=== PATIENT | male | born 1965 | race African-American/Black ===

== ENCOUNTER → 2017-01-29 | Outpatient (CLI) | payer MEDICARE, MEDICAID ==
[~2017-01-29] MED LIST: GLIM4TAB2 PO; METF10002 PO; VALS320T2 PO
== END | disposition home or self-care (01) ==
LOC: RAD 09:53
PROVIDERS: ATTEND Internal Medicine Pulmonary Disease
DX: J44.9 Chronic obstructive pulmonary disease, unspecified (principal); G47.30 Sleep apnea, unspecified
CPT/HCPCS: 71010; 93005

== ENCOUNTER → 2017-06-25 | Outpatient (CLI) | payer MEDICARE | END | disposition home or self-care (01) | LOC: RAD 13:11 | PROVIDERS: ATTEND Internal Medicine Pulmonary Disease | DX: Z01.818 Encounter for other preprocedural examination (principal); J44.9 Chronic obstructive pulmonary disease, unspecified; E11.9 Type 2 diabetes mellitus without complications | CPT/HCPCS: 71046; 93005 ==

== ENCOUNTER 2018-10-24 20:25 | Inpatient (IN) | payer MEDICARE ==
[~2018-10-24] VITALS: Ht 188 cm; Wt 93.0 kg
[~2018-10-24 20:25] MED LIST changes: +METF-416 PO; -METF10002 PO
[2018-10-24 20:30] VITALS: BP 145/83
[2018-10-24] MEDS ORDERED: DEXTROSE 50% WATER 50ML SYRINGE IV PRN (22:15)
[2018-10-24] MEDS ORDERED: MAGNESIUM HYDROXIDE 400MG/5ML 30ML UDC PO PRN (22:15)
[2018-10-24] MEDS: INSULIN LISPRO 100 UNITS/ML SUBCUT SCH (22:30)
[2018-10-24] MEDS ORDERED: DOXAZOSIN MESYLATE 4MG TABLET PO SCH (23:00)
[2018-10-24] MEDS: CLONIDINE 0.3MG TABLET PO SCH (23:00)
[2018-10-24] MEDS: ATORVASTATIN CALCIUM 20MG TABLET PO SCH (23:08)
[2018-10-24] MEDS: HYDRALAZINE HCL 25MG TABLET PO SCH (23:08)
[2018-10-24] MEDS: BLOOD SUGAR DIAGNOSTIC STRIP TEST SCH (23:08)
[2018-10-24] MEDS: INSULIN GLARGINE UD 100 UNITS/ML SYR SUBCUT SCH (23:19)
[2018-10-25 03:44] LABS: SODIUM URINE (RAW) 45 mEq/L; SODIUM URINE 24 HR 24 mEq/24hr (40-220)
[2018-10-25] MEDS: CLONIDINE 0.3MG TABLET PO SCH ×5 (05:30→21:43)
[2018-10-25] MEDS: INSULIN LISPRO 100 UNITS/ML SUBCUT SCH ×4 (05:41→21:30)
[2018-10-25 06:22] LABS: BASOPHILS % 1.1 % (0.0-2.0); EOSINOPHILS % 4.7 % (0.0-5.0); HEMATOCRIT. 27.7 % (42.0-52.0); HEMOGLOBIN. 9.2 g/dL (14.0-18.0); MEAN CORPUSCULAR HEMOGLOBIN 26.7 pg (28.0-32.0); MEAN CORPUSCULAR VOLUME 80.1 fL (80.0-94.0); MONOCYTES % 6.2 % (2.0-8.0); PLATELET 257 x1000/uL (130-400); RED BLOOD CELL COUNT 3.46 mill/uL (4.7-6.1); RED CELL DISTRIBUTION WIDTH 13.6 % (11.6-14.6)
[2018-10-25] MEDS ORDERED: BLOOD SUGAR DIAGNOSTIC STRIP TEST SCH (06:30)
[2018-10-25] MEDS: BLOOD SUGAR DIAGNOSTIC STRIP TEST SCH ×4 (06:54→21:20)
[2018-10-25] MEDS: HYDRALAZINE HCL 25MG TABLET PO SCH ×5 (06:55→21:43)
[2018-10-25] MEDS: OMEPRAZOLE 20MG CAPSULE EXTENDED RELEASE PO SCH (06:55)
[2018-10-25 08:00] VITALS: BP 157/86
[2018-10-25] MEDS: NIFEDIPINE XL 60MG TAB PO SCH ×2 (09:00→20:48)
[2018-10-25] MEDS ORDERED: POTASSIUM CHLORIDE 20MEQ/PACKET PO SCH (09:00)
[2018-10-25] MEDS ORDERED: INSULIN LISPRO 100 UNITS/ML SUBCUT SCH (09:00)
[2018-10-25] MEDS: FLUTICASONE/VILANTEROL 200-25 BLST.W.DEV ORI SCH (09:00)
[2018-10-25] MEDS: DOCUSATE SODIUM 250MG CAPSULE PO SCH (09:46)
[2018-10-25] MEDS: FERROUS SULFATE 325MG TABLET PO SCH (09:46)
[2018-10-25] MEDS ORDERED: LACTULOSE 20G/30ML UDC PO PRN ×2 (15:30→15:45)
[2018-10-25 20:00] VITALS: BP 177/93
[2018-10-25] MEDS: ATORVASTATIN CALCIUM 20MG TABLET PO SCH (20:48)
[2018-10-25] MEDS: EPOETIN ALFA 10000UNITS/ML VIAL SUBCUT SCH (20:49)
[2018-10-25] MEDS: BISACODYL 5MG TABLET PO PRN (20:49)
[2018-10-25] MEDS ORDERED: DOXAZOSIN MESYLATE 2MG TABLET PO SCH (21:00)
[2018-10-25] MEDS: INSULIN GLARGINE UD 100 UNITS/ML SYR SUBCUT SCH (21:31)
[2018-10-25] MEDS ORDERED: INSULIN GLARGINE UD 100 UNITS/ML SYR SUBCUT SCH (22:00)
[2018-10-25 22:50] LABS: CLARITY URINE CLOUDY (CLEAR); COLOR URINE YELLOW (YELLOW); KETONES URINE NEGATIVE (NEGATIVE); LEUKOCYTE ESTERASE URINE 1+ (NEGATIVE); NITRITE URINE NEGATIVE (NEGATIVE); OCCULT BLOOD URINE NEGATIVE (NEGATIVE); PROTEIN URINE 3+ (NEGATIVE); SPECIFIC GRAVITY URINE 1.015 (1.005-1.030); UROBILINOGEN URINE 0.2 E.U./dL (0.2-1.0)
[2018-10-25] MEDS: CLONIDINE 0.1MG TABLET PO PRN (23:20)
[2018-10-26] MEDS: CLONIDINE 0.3MG TABLET PO SCH ×3 (05:17→21:30)
[2018-10-26 05:58] LABS: HEMATOCRIT. 26.3 % (42.0-52.0); HEMOGLOBIN. 8.9 g/dL (14.0-18.0); LYMPHOCYTES % 27.4 % (20.0-50.0); MEAN CORPUSCULAR HEMOGLOBIN 26.9 pg (28.0-32.0); MEAN CORPUSCULAR VOLUME 79.2 fL (80.0-94.0); MEAN PLATELET VOLUME 9.7 fl (7.4-10.4); MONOCYTES % 5.8 % (2.0-8.0); NEUTROPHILS % 60.8 % (40.0-76.0); PLATELET 240 x1000/uL (130-400); RED BLOOD CELL COUNT 3.32 mill/uL (4.7-6.1); RED CELL DISTRIBUTION WIDTH 13.4 % (11.6-14.6)
[2018-10-26] MEDS: HYDRALAZINE HCL 25MG TABLET PO SCH ×3 (06:12→21:30)
[2018-10-26] MEDS: OMEPRAZOLE 20MG CAPSULE EXTENDED RELEASE PO SCH (06:12)
[2018-10-26 06:13] VITALS: BP 153/85
[2018-10-26 06:16] LABS: PHOSPHORUS 3.4 mg/dL (2.5-4.9)
[2018-10-26] MEDS: BLOOD SUGAR DIAGNOSTIC STRIP TEST SCH ×4 (06:18→21:29)
[2018-10-26] MEDS: INSULIN LISPRO 100 UNITS/ML SUBCUT SCH ×4 (06:49→21:34)
[2018-10-26 07:45] VITALS: BP 152/77
[2018-10-26 08:05] VITALS: BP 152/77
[2018-10-26] MEDS: NIFEDIPINE XL 60MG TAB PO SCH ×2 (08:46→20:45)
[2018-10-26] MEDS: FERROUS SULFATE 325MG TABLET PO SCH (08:46)
[2018-10-26] MEDS: DOCUSATE SODIUM 250MG CAPSULE PO SCH (08:46)
[2018-10-26] MEDS: FLUTICASONE/VILANTEROL 200-25 BLST.W.DEV ORI SCH (09:20)
[2018-10-26] MEDS: LACTULOSE 20G/30ML UDC PO PRN (09:26)
[2018-10-26 11:14] VITALS: BP 116/71
[2018-10-26] MEDS: FOLIC ACID/VITAMIN B COMP W-C TABLET PO SCH (11:46)
[2018-10-26] MEDS: LEVOFLOXACIN 250MG TABLET PO SCH (11:46)
[2018-10-26] MEDS ORDERED: LIDOCAINE HCL 2% JELLY 5ML MM SCH (13:00)
[2018-10-26 20:05] VITALS: BP 153/83
[2018-10-26] MEDS: ATORVASTATIN CALCIUM 20MG TABLET PO SCH (20:46)
[2018-10-26] MEDS: DOXAZOSIN MESYLATE 2MG TABLET PO SCH (20:46)
[2018-10-26] MEDS: INSULIN GLARGINE UD 100 UNITS/ML SYR SUBCUT SCH (21:34)
[2018-10-27] VITALS (14 sets, daily range): BP systolic 140–162; BP diastolic 78–94
[2018-10-27] MEDS: CLONIDINE 0.3MG TABLET PO SCH ×3 (05:36→23:30)
[2018-10-27] MEDS: HYDRALAZINE HCL 25MG TABLET PO SCH ×2 (05:37→13:10)
[2018-10-27] MEDS: BLOOD SUGAR DIAGNOSTIC STRIP TEST SCH ×4 (06:33→21:53)
[2018-10-27] MEDS: INSULIN LISPRO 100 UNITS/ML SUBCUT SCH ×4 (06:33→21:00)
[2018-10-27 07:11] LABS: PARTIAL THROMBOPLASTIN TIME 30.4 sec (23.4-31.0); PROTHROMBIN TIME 10.1 sec (9.6-11.0)
[2018-10-27 07:13] LABS: EOSINOPHILS % 5.6 % (0.0-5.0); HEMATOCRIT. 27.2 % (42.0-52.0); MEAN CORPUSCULAR HEMOGLOBIN 26.8 pg (28.0-32.0); MEAN CORPUSCULAR VOLUME 80.5 fL (80.0-94.0); MEAN PLATELET VOLUME 9.8 fl (7.4-10.4); MONOCYTES % 6.1 % (2.0-8.0); NEUTROPHILS % 49.3 % (40.0-76.0); PLATELET 235 x1000/uL (130-400); RED BLOOD CELL COUNT 3.38 mill/uL (4.7-6.1); RED CELL DISTRIBUTION WIDTH 13.7 % (11.6-14.6)
[2018-10-27] MEDS ORDERED: SODIUM BICARBONATE 4% (2.4MEQ) 5ML VIAL IV ONE (07:17)
[2018-10-27] MEDS ORDERED: LIDOCAINE HCL 1% 20ML VIAL (Pyxis) INJ ONE (07:17)
[2018-10-27] MEDS ORDERED: HEPARIN 1000 UNITS/ML 10ML ONE (07:17)
[2018-10-27] MEDS ORDERED: FENTANYL CITRATE/PF 50MCG/ML 2ML VIAL ONE (07:39)
[2018-10-27] MEDS ORDERED: FENTANYL CITRATE/PF 50MCG/ML 2ML VIAL IV ONE (07:50)
[2018-10-27] MEDS: FERROUS SULFATE 325MG TABLET PO SCH (08:45)
[2018-10-27] MEDS: FOLIC ACID/VITAMIN B COMP W-C TABLET PO SCH (08:45)
[2018-10-27] MEDS: NIFEDIPINE XL 60MG TAB PO SCH ×2 (08:45→21:00)
[2018-10-27] MEDS: DOCUSATE SODIUM 250MG CAPSULE PO SCH (08:45)
[2018-10-27] MEDS: FAMOTIDINE 20MG TABLET PO SCH (08:46)
[2018-10-27] MEDS: FLUTICASONE/VILANTEROL 200-25 BLST.W.DEV ORI SCH (09:38)
[2018-10-27] MEDS ORDERED: ENOXAPARIN 30MG/0.3ML SYR SUBCUT NR (14:00)
[2018-10-27] MEDS ORDERED: ASPIRIN 325MG EC TABLET PO NR (17:15)
[2018-10-27] MEDS: ATORVASTATIN CALCIUM 20MG TABLET PO SCH (21:48)
[2018-10-27] MEDS: DOXAZOSIN MESYLATE 2MG TABLET PO SCH (21:53)
[2018-10-27] MEDS: INSULIN GLARGINE UD 100 UNITS/ML SYR SUBCUT SCH (22:02)
[2018-10-28] MEDS: HYDRALAZINE HCL 25MG TABLET PO SCH ×4 (02:29→22:43)
[2018-10-28] MEDS: CLONIDINE 0.3MG TABLET PO SCH ×3 (06:29→22:44)
[2018-10-28] MEDS: BLOOD SUGAR DIAGNOSTIC STRIP TEST SCH ×4 (06:30→21:30)
[2018-10-28] MEDS: INSULIN LISPRO 100 UNITS/ML SUBCUT SCH ×4 (06:36→21:50)
[2018-10-28 08:00] VITALS: BP 144/80
[2018-10-28] MEDS: FOLIC ACID/VITAMIN B COMP W-C TABLET PO SCH (08:18)
[2018-10-28] MEDS: ENOXAPARIN 30MG/0.3ML SYR SUBCUT SCH (08:18)
[2018-10-28] MEDS: FAMOTIDINE 20MG TABLET PO SCH (08:18)
[2018-10-28] MEDS: FERROUS SULFATE 325MG TABLET PO SCH (08:18)
[2018-10-28] MEDS: ASPIRIN 325MG EC TABLET PO SCH (08:18)
[2018-10-28] MEDS: DOCUSATE SODIUM 250MG CAPSULE PO SCH (08:18)
[2018-10-28] MEDS: NIFEDIPINE XL 60MG TAB PO SCH ×2 (08:19→21:48)
[2018-10-28] MEDS: FLUTICASONE/VILANTEROL 200-25 BLST.W.DEV ORI SCH (08:48)
[2018-10-28] MEDS: LEVOFLOXACIN 250MG TABLET PO SCH (11:01)
[2018-10-28 20:00] VITALS: BP 121/90
[2018-10-28] MEDS: ATORVASTATIN CALCIUM 20MG TABLET PO SCH (21:48)
[2018-10-28] MEDS: EPOETIN ALFA 10000UNITS/ML VIAL SUBCUT SCH (21:48)
[2018-10-28] MEDS: DOXAZOSIN MESYLATE 2MG TABLET PO SCH (21:49)
[2018-10-28] MEDS: INSULIN GLARGINE UD 100 UNITS/ML SYR SUBCUT SCH (21:51)
[2018-10-29] MEDS: BLOOD SUGAR DIAGNOSTIC STRIP TEST SCH ×4 (06:20→21:32)
[2018-10-29] MEDS: HYDRALAZINE HCL 25MG TABLET PO SCH ×3 (06:25→21:32)
[2018-10-29] MEDS: CLONIDINE 0.3MG TABLET PO SCH ×3 (06:25→22:42)
[2018-10-29 07:52] LABS: BASOPHILS % 1.1 % (0.0-2.0); HEMATOCRIT. 28.7 % (42.0-52.0); HEMOGLOBIN. 9.7 g/dL (14.0-18.0); LYMPHOCYTES % 31.1 % (20.0-50.0); MEAN CORPUSCULAR HEMOGLOBIN 26.8 pg (28.0-32.0); MEAN CORPUSCULAR VOLUME 79.6 fL (80.0-94.0); MEAN PLATELET VOLUME 10.1 fl (7.4-10.4); MONOCYTES % 7.2 % (2.0-8.0); NEUTROPHILS % 56.6 % (40.0-76.0); PLATELET 246 x1000/uL (130-400); RED CELL DISTRIBUTION WIDTH 13.4 % (11.6-14.6)
[2018-10-29 08:24] VITALS: BP 143/85
[2018-10-29] MEDS: DOCUSATE SODIUM 250MG CAPSULE PO SCH (09:53)
[2018-10-29] MEDS: ASPIRIN 325MG EC TABLET PO SCH (09:53)
[2018-10-29] MEDS: NIFEDIPINE XL 60MG TAB PO SCH ×2 (09:53→21:32)
[2018-10-29] MEDS: FERROUS SULFATE 325MG TABLET PO SCH (09:53)
[2018-10-29] MEDS: BISACODYL 5MG TABLET PO PRN (09:53)
[2018-10-29] MEDS: FOLIC ACID/VITAMIN B COMP W-C TABLET PO SCH (09:53)
[2018-10-29] MEDS: FAMOTIDINE 20MG TABLET PO SCH (09:53)
[2018-10-29] MEDS: ENOXAPARIN 30MG/0.3ML SYR SUBCUT SCH (09:54)
[2018-10-29] MEDS: INSULIN LISPRO 100 UNITS/ML SUBCUT SCH ×4 (10:02→22:52)
[2018-10-29] MEDS: FLUTICASONE/VILANTEROL 200-25 BLST.W.DEV ORI SCH (10:04)
[2018-10-29 20:00] VITALS: BP 136/73
[2018-10-29] MEDS: ATORVASTATIN CALCIUM 20MG TABLET PO SCH (21:32)
[2018-10-29] MEDS: DOXAZOSIN MESYLATE 2MG TABLET PO SCH (22:43)
[2018-10-29] MEDS: INSULIN GLARGINE UD 100 UNITS/ML SYR SUBCUT SCH (22:53)
[2018-10-30] MEDS: LACTULOSE 20G/30ML UDC PO PRN ×2 (06:45→14:47)
[2018-10-30] MEDS: CLONIDINE 0.3MG TABLET PO SCH ×3 (06:46→22:00)
[2018-10-30] MEDS: HYDRALAZINE HCL 25MG TABLET PO SCH ×3 (06:47→22:00)
[2018-10-30] MEDS: BLOOD SUGAR DIAGNOSTIC STRIP TEST SCH ×4 (06:47→21:58)
[2018-10-30] MEDS: INSULIN LISPRO 100 UNITS/ML SUBCUT SCH ×3 (06:54→21:00)
[2018-10-30 08:13] VITALS: BP 139/85
[2018-10-30] MEDS: FAMOTIDINE 20MG TABLET PO SCH (08:48)
[2018-10-30] MEDS: FERROUS SULFATE 325MG TABLET PO SCH (08:48)
[2018-10-30] MEDS: ASPIRIN 325MG EC TABLET PO SCH (08:49)
[2018-10-30] MEDS: FOLIC ACID/VITAMIN B COMP W-C TABLET PO SCH (08:49)
[2018-10-30] MEDS: DOCUSATE SODIUM 250MG CAPSULE PO SCH (08:49)
[2018-10-30] MEDS: NIFEDIPINE XL 60MG TAB PO SCH (08:50)
[2018-10-30] MEDS: ENOXAPARIN 30MG/0.3ML SYR SUBCUT SCH (08:51)
[2018-10-30] MEDS: FLUTICASONE/VILANTEROL 200-25 BLST.W.DEV ORI SCH (09:22)
[2018-10-30] MEDS: LEVOFLOXACIN 250MG TABLET PO SCH (11:26)
[2018-10-30 20:00] VITALS: BP 141/81
[2018-10-30] MEDS ORDERED: HEPARIN SODIUM 1,000 UNIT/1ML VIAL IV NR (21:15)
[2018-10-31] MEDS: DOXAZOSIN MESYLATE 2MG TABLET PO SCH ×2 (00:14→20:42)
[2018-10-31] MEDS: ATORVASTATIN CALCIUM 20MG TABLET PO SCH ×2 (00:14→20:42)
[2018-10-31] MEDS: EPOETIN ALFA 10000UNITS/ML VIAL SUBCUT SCH (00:14)
[2018-10-31] MEDS: INSULIN GLARGINE UD 100 UNITS/ML SYR SUBCUT SCH ×2 (00:42→22:08)
[2018-10-31] MEDS: NIFEDIPINE XL 60MG TAB PO SCH ×3 (00:43→20:42)
[2018-10-31] MEDS ORDERED: HALOPERIDOL LACTATE 5MG/ML VIAL IM NR (02:15)
[2018-10-31] MEDS: CLONIDINE 0.3MG TABLET PO SCH ×3 (06:00→22:09)
[2018-10-31] MEDS: BLOOD SUGAR DIAGNOSTIC STRIP TEST SCH ×4 (06:02→20:46)
[2018-10-31] MEDS: INSULIN LISPRO 100 UNITS/ML SUBCUT SCH ×4 (06:29→20:53)
[2018-10-31] MEDS: HYDRALAZINE HCL 25MG TABLET PO SCH ×3 (06:29→22:09)
[2018-10-31 08:09] VITALS: BP 125/72
[2018-10-31] MEDS: ASPIRIN 325MG EC TABLET PO SCH (08:50)
[2018-10-31] MEDS: FOLIC ACID/VITAMIN B COMP W-C TABLET PO SCH (08:51)
[2018-10-31] MEDS: FAMOTIDINE 20MG TABLET PO SCH (08:51)
[2018-10-31] MEDS: FERROUS SULFATE 325MG TABLET PO SCH (08:51)
[2018-10-31] MEDS: DOCUSATE SODIUM 250MG CAPSULE PO SCH (08:51)
[2018-10-31] MEDS: ENOXAPARIN 30MG/0.3ML SYR SUBCUT SCH (08:52)
[2018-10-31] MEDS: FLUTICASONE/VILANTEROL 200-25 BLST.W.DEV ORI SCH (08:52)
[2018-10-31] MEDS: BISACODYL 5MG TABLET PO PRN (18:04)
[2018-10-31 20:00] VITALS: BP 142/84
[2018-11-01] MEDS: HALOPERIDOL 0.5MG TABLET PO PRN (00:32)
[2018-11-01] MEDS: LACTULOSE 20G/30ML UDC PO PRN (05:51)
[2018-11-01] MEDS: CLONIDINE 0.3MG TABLET PO SCH ×2 (05:52→13:35)
[2018-11-01] MEDS: BLOOD SUGAR DIAGNOSTIC STRIP TEST SCH ×4 (05:52→21:00)
[2018-11-01] MEDS: HYDRALAZINE HCL 25MG TABLET PO SCH ×2 (05:52→13:35)
[2018-11-01] MEDS: INSULIN LISPRO 100 UNITS/ML SUBCUT SCH ×3 (06:07→17:38)
[2018-11-01 07:51] LABS: BASOPHILS % 1.1 % (0.0-2.0); EOSINOPHILS % 5.7 % (0.0-5.0); HEMATOCRIT. 31.7 % (42.0-52.0); HEMOGLOBIN. 10.6 g/dL (14.0-18.0); LYMPHOCYTES % 36.1 % (20.0-50.0); MEAN CORPUSCULAR HEMOGLOBIN 26.6 pg (28.0-32.0); MEAN CORPUSCULAR VOLUME 79.6 fL (80.0-94.0); MEAN PLATELET VOLUME 9.5 fl (7.4-10.4); MONOCYTES % 8.8 % (2.0-8.0); NEUTROPHILS % 48.3 % (40.0-76.0); PLATELET 271 x1000/uL (130-400); RED BLOOD CELL COUNT 3.98 mill/uL (4.7-6.1); RED CELL DISTRIBUTION WIDTH 13.7 % (11.6-14.6)
[2018-11-01 08:21] VITALS: BP 106/60
[2018-11-01 08:21] LABS: PHOSPHORUS 4.3 mg/dL (2.5-4.9)
[2018-11-01] MEDS: NIFEDIPINE XL 60MG TAB PO SCH (09:00)
[2018-11-01] MEDS: FOLIC ACID/VITAMIN B COMP W-C TABLET PO SCH (09:01)
[2018-11-01] MEDS: ASPIRIN 325MG EC TABLET PO SCH (09:01)
[2018-11-01] MEDS: FERROUS SULFATE 325MG TABLET PO SCH (09:01)
[2018-11-01] MEDS: FAMOTIDINE 20MG TABLET PO SCH (09:03)
[2018-11-01] MEDS: ENOXAPARIN 30MG/0.3ML SYR SUBCUT SCH (09:03)
[2018-11-01] MEDS: DOCUSATE SODIUM 250MG CAPSULE PO SCH (09:03)
[2018-11-01] MEDS: FLUTICASONE/VILANTEROL 200-25 BLST.W.DEV ORI SCH (09:04)
[2018-11-01] MEDS: LEVOFLOXACIN 250MG TABLET PO SCH (11:31)
[2018-11-01] MEDS ORDERED: ACETAMINOPHEN 325MG TABLET PO PRN (12:45)
[2018-11-01 20:00] VITALS: BP 129/76
[2018-11-01] MEDS ORDERED: INSULIN GLARGINE UD 100 UNITS/ML SYR SUBCUT SCH (22:00)
[2018-11-01] MEDS ORDERED: HEPARIN SODIUM 1,000 UNIT/1ML VIAL IV ONE (22:45)
[2018-11-01] MEDS ORDERED: HEPARIN SODIUM 1,000 UNIT/1ML VIAL IV NR (22:45)
[2018-11-02] MEDS: DOXAZOSIN MESYLATE 2MG TABLET PO SCH ×2 (00:07→21:48)
[2018-11-02] MEDS: ATORVASTATIN CALCIUM 20MG TABLET PO SCH ×2 (00:07→21:48)
[2018-11-02] MEDS: NIFEDIPINE XL 60MG TAB PO SCH ×3 (00:08→21:47)
[2018-11-02] MEDS: INSULIN LISPRO 100 UNITS/ML SUBCUT SCH ×5 (00:14→21:54)
[2018-11-02] MEDS: CLONIDINE 0.3MG TABLET PO SCH ×4 (01:58→23:08)
[2018-11-02] MEDS: HYDRALAZINE HCL 25MG TABLET PO SCH ×4 (01:59→23:09)
[2018-11-02] MEDS: BLOOD SUGAR DIAGNOSTIC STRIP TEST SCH ×4 (06:38→21:49)
[2018-11-02 08:00] VITALS: BP 115/82
[2018-11-02] MEDS: FERROUS SULFATE 325MG TABLET PO SCH (09:14)
[2018-11-02] MEDS: ASPIRIN 325MG EC TABLET PO SCH (09:14)
[2018-11-02] MEDS: DOCUSATE SODIUM 250MG CAPSULE PO SCH (09:14)
[2018-11-02] MEDS: FAMOTIDINE 20MG TABLET PO SCH (09:14)
[2018-11-02] MEDS: FOLIC ACID/VITAMIN B COMP W-C TABLET PO SCH (09:14)
[2018-11-02] MEDS: ENOXAPARIN 30MG/0.3ML SYR SUBCUT SCH (09:34)
[2018-11-02] MEDS: FLUTICASONE/VILANTEROL 200-25 BLST.W.DEV ORI SCH (09:39)
[2018-11-02 20:00] VITALS: BP 115/70
[2018-11-02] MEDS: INSULIN GLARGINE UD 100 UNITS/ML SYR SUBCUT SCH (21:55)
[2018-11-03] MEDS: CLONIDINE 0.3MG TABLET PO SCH ×3 (06:20→22:14)
[2018-11-03] MEDS: HYDRALAZINE HCL 25MG TABLET PO SCH ×3 (06:21→21:22)
[2018-11-03] MEDS: BLOOD SUGAR DIAGNOSTIC STRIP TEST SCH ×4 (06:36→21:00)
[2018-11-03] MEDS: INSULIN LISPRO 100 UNITS/ML SUBCUT SCH ×4 (06:50→22:05)
[2018-11-03 07:30] VITALS: BP 149/92
[2018-11-03] MEDS: FOLIC ACID/VITAMIN B COMP W-C TABLET PO SCH (09:12)
[2018-11-03] MEDS: FAMOTIDINE 20MG TABLET PO SCH (09:12)
[2018-11-03] MEDS: NIFEDIPINE XL 60MG TAB PO SCH ×2 (09:12→21:23)
[2018-11-03] MEDS: ENOXAPARIN 30MG/0.3ML SYR SUBCUT SCH (09:13)
[2018-11-03] MEDS: DOCUSATE SODIUM 250MG CAPSULE PO SCH (09:13)
[2018-11-03] MEDS: FERROUS SULFATE 325MG TABLET PO SCH (09:13)
[2018-11-03] MEDS: ASPIRIN 325MG EC TABLET PO SCH (09:13)
[2018-11-03] MEDS: FLUTICASONE/VILANTEROL 200-25 BLST.W.DEV ORI SCH (09:38)
[2018-11-03] MEDS: LEVOFLOXACIN 250MG TABLET PO SCH (10:12)
[2018-11-03 13:15] VITALS: BP 121/74
[2018-11-03] MEDS: HALOPERIDOL 0.5MG TABLET PO PRN (18:46)
[2018-11-03 20:00] VITALS: BP 124/80
[2018-11-03] MEDS: ATORVASTATIN CALCIUM 20MG TABLET PO SCH (21:19)
[2018-11-03] MEDS: DOXAZOSIN MESYLATE 2MG TABLET PO SCH (21:19)
[2018-11-03] MEDS: INSULIN GLARGINE UD 100 UNITS/ML SYR SUBCUT SCH (22:05)
[2018-11-03] MEDS: LACTULOSE 20G/30ML UDC PO PRN (22:14)
[2018-11-04 06:42] LABS: BASOPHILS % 1.2 % (0.0-2.0); EOSINOPHILS % 6.7 % (0.0-5.0); HEMATOCRIT. 29.1 % (42.0-52.0); HEMOGLOBIN. 9.8 g/dL (14.0-18.0); LYMPHOCYTES % 35.3 % (20.0-50.0); MEAN CORPUSCULAR HEMOGLOBIN 26.8 pg (28.0-32.0); MEAN CORPUSCULAR VOLUME 79.1 fL (80.0-94.0); MEAN PLATELET VOLUME 9.3 fl (7.4-10.4); NEUTROPHILS % 47.8 % (40.0-76.0); PLATELET 293 x1000/uL (130-400); RED BLOOD CELL COUNT 3.68 mill/uL (4.7-6.1); RED CELL DISTRIBUTION WIDTH 13.5 % (11.6-14.6)
[2018-11-04] MEDS: BLOOD SUGAR DIAGNOSTIC STRIP TEST SCH ×4 (06:56→21:00)
[2018-11-04] MEDS: HYDRALAZINE HCL 25MG TABLET PO SCH ×3 (06:56→22:03)
[2018-11-04] MEDS: CLONIDINE 0.3MG TABLET PO SCH ×3 (06:56→22:04)
[2018-11-04 07:53] VITALS: BP 138/85
[2018-11-04] MEDS: FLUTICASONE/VILANTEROL 200-25 BLST.W.DEV ORI SCH (08:43)
[2018-11-04] MEDS: BISACODYL 5MG TABLET PO PRN (08:43)
[2018-11-04] MEDS: FAMOTIDINE 20MG TABLET PO SCH (08:44)
[2018-11-04] MEDS: NIFEDIPINE XL 60MG TAB PO SCH ×2 (08:44→20:55)
[2018-11-04] MEDS: DOCUSATE SODIUM 250MG CAPSULE PO SCH (08:44)
[2018-11-04] MEDS: ASPIRIN 325MG EC TABLET PO SCH (08:44)
[2018-11-04] MEDS: ENOXAPARIN 30MG/0.3ML SYR SUBCUT SCH (08:44)
[2018-11-04] MEDS: FOLIC ACID/VITAMIN B COMP W-C TABLET PO SCH (08:44)
[2018-11-04] MEDS: FERROUS SULFATE 325MG TABLET PO SCH (08:44)
[2018-11-04] MEDS: INSULIN LISPRO 100 UNITS/ML SUBCUT SCH ×3 (12:27→22:02)
[2018-11-04] MEDS: OLANZAPINE 10MG TABLET PO SCH (18:58)
[2018-11-04 20:00] VITALS: BP 132/75
[2018-11-04] MEDS: ATORVASTATIN CALCIUM 20MG TABLET PO SCH (20:55)
[2018-11-04] MEDS: DOXAZOSIN MESYLATE 2MG TABLET PO SCH (20:55)
[2018-11-04] MEDS ORDERED: EPOETIN ALFA 10000UNITS/ML VIAL SUBCUT SCH (21:00)
[2018-11-04] MEDS: INSULIN GLARGINE UD 100 UNITS/ML SYR SUBCUT SCH (22:03)
[2018-11-04] MEDS: LACTULOSE 20G/30ML UDC PO PRN (22:04)
[2018-11-05] MEDS: HYDRALAZINE HCL 25MG TABLET PO SCH ×3 (05:33→21:10)
[2018-11-05] MEDS: BLOOD SUGAR DIAGNOSTIC STRIP TEST SCH ×4 (06:19→21:10)
[2018-11-05] MEDS: CLONIDINE 0.3MG TABLET PO SCH ×3 (06:23→21:42)
[2018-11-05] MEDS: LACTULOSE 20G/30ML UDC PO PRN (06:23)
[2018-11-05] MEDS: INSULIN LISPRO 100 UNITS/ML SUBCUT SCH ×4 (06:47→21:47)
[2018-11-05 07:58] VITALS: BP 103/71
[2018-11-05] MEDS: ASPIRIN 325MG EC TABLET PO SCH (08:32)
[2018-11-05] MEDS: OLANZAPINE 10MG TABLET PO SCH (08:32)
[2018-11-05] MEDS: FERROUS SULFATE 325MG TABLET PO SCH (08:32)
[2018-11-05] MEDS: FAMOTIDINE 20MG TABLET PO SCH (08:32)
[2018-11-05] MEDS: DOCUSATE SODIUM 250MG CAPSULE PO SCH (08:32)
[2018-11-05] MEDS: FOLIC ACID/VITAMIN B COMP W-C TABLET PO SCH (08:32)
[2018-11-05] MEDS: FLUTICASONE/VILANTEROL 200-25 BLST.W.DEV ORI SCH (08:32)
[2018-11-05] MEDS: ENOXAPARIN 30MG/0.3ML SYR SUBCUT SCH (08:33)
[2018-11-05] MEDS: NIFEDIPINE XL 60MG TAB PO SCH ×2 (08:34→21:00)
[2018-11-05] MEDS ORDERED: SODIUM CHLORIDE 0.9% 1,000 ML IV ONE (12:30)
[2018-11-05] MEDS: BISACODYL 5MG TABLET PO PRN (17:21)
[2018-11-05 20:00] VITALS: BP 104/47
[2018-11-05] MEDS: DOXAZOSIN MESYLATE 2MG TABLET PO SCH (21:09)
[2018-11-05] MEDS: ATORVASTATIN CALCIUM 20MG TABLET PO SCH (21:10)
[2018-11-05] MEDS: INSULIN GLARGINE UD 100 UNITS/ML SYR SUBCUT SCH (21:47)
[2018-11-06] MEDS: HYDRALAZINE HCL 25MG TABLET PO SCH ×3 (06:07→22:00)
[2018-11-06] MEDS: CLONIDINE 0.1MG TABLET PO PRN ×3 (06:07→06:12)
[2018-11-06] MEDS: BLOOD SUGAR DIAGNOSTIC STRIP TEST SCH ×4 (06:09→21:53)
[2018-11-06] MEDS: CLONIDINE 0.3MG TABLET PO SCH ×3 (06:13→22:00)
[2018-11-06 07:12] LABS: BASOPHILS % 0.9 % (0.0-2.0); EOSINOPHILS % 6.1 % (0.0-5.0); HEMATOCRIT. 31.8 % (42.0-52.0); HEMOGLOBIN. 10.7 g/dL (14.0-18.0); LYMPHOCYTES % 40.5 % (20.0-50.0); MEAN CORPUSCULAR HEMOGLOBIN 26.7 pg (28.0-32.0); MEAN CORPUSCULAR VOLUME 79.6 fL (80.0-94.0); MEAN PLATELET VOLUME 9.3 fl (7.4-10.4); MONOCYTES % 8.9 % (2.0-8.0); NEUTROPHILS % 43.6 % (40.0-76.0); PLATELET 305 x1000/uL (130-400); RED BLOOD CELL COUNT 3.99 mill/uL (4.7-6.1); RED CELL DISTRIBUTION WIDTH 14.3 % (11.6-14.6)
[2018-11-06 07:17] LABS: PHOSPHORUS 6.2 mg/dL (2.5-4.9)
[2018-11-06 08:04] VITALS: BP 137/84
[2018-11-06] MEDS: FERROUS SULFATE 325MG TABLET PO SCH (08:16)
[2018-11-06] MEDS: DOCUSATE SODIUM 250MG CAPSULE PO SCH (08:16)
[2018-11-06] MEDS: ASPIRIN 325MG EC TABLET PO SCH (08:16)
[2018-11-06] MEDS: FOLIC ACID/VITAMIN B COMP W-C TABLET PO SCH (08:16)
[2018-11-06] MEDS: FAMOTIDINE 20MG TABLET PO SCH (08:16)
[2018-11-06] MEDS: ENOXAPARIN 30MG/0.3ML SYR SUBCUT SCH (08:16)
[2018-11-06] MEDS: FLUTICASONE/VILANTEROL 200-25 BLST.W.DEV ORI SCH (08:21)
[2018-11-06] MEDS: INSULIN LISPRO 100 UNITS/ML SUBCUT SCH ×4 (08:25→22:05)
[2018-11-06] MEDS: NIFEDIPINE XL 60MG TAB PO SCH ×2 (08:40→21:00)
[2018-11-06] MEDS ORDERED: OLANZAPINE 5MG TABLET PO SCH (09:00)
[2018-11-06] MEDS: LACTULOSE 20G/30ML UDC PO PRN (18:51)
[2018-11-06 20:00] VITALS: BP 114/86
[2018-11-06 20:27] LABS: CLARITY URINE CLOUDY (CLEAR); COLOR URINE YELLOW (YELLOW); KETONES URINE TRACE (NEGATIVE); LEUKOCYTE ESTERASE URINE 1+ (NEGATIVE); NITRITE URINE NEGATIVE (NEGATIVE); OCCULT BLOOD URINE NEGATIVE (NEGATIVE); PROTEIN URINE 3+ (NEGATIVE); SPECIFIC GRAVITY URINE 1.013 (1.005-1.030); UROBILINOGEN URINE 0.2 E.U./dL (0.2-1.0)
[2018-11-06] MEDS: DOXAZOSIN MESYLATE 2MG TABLET PO SCH (21:00)
[2018-11-06] MEDS: ATORVASTATIN CALCIUM 20MG TABLET PO SCH (21:56)
[2018-11-06] MEDS: INSULIN GLARGINE UD 100 UNITS/ML SYR SUBCUT SCH (22:05)
[2018-11-07] MEDS: BLOOD SUGAR DIAGNOSTIC STRIP TEST SCH ×4 (06:06→20:26)
[2018-11-07] MEDS: CLONIDINE 0.3MG TABLET PO SCH ×3 (06:06→21:59)
[2018-11-07] MEDS: HYDRALAZINE HCL 25MG TABLET PO SCH ×3 (06:07→21:58)
[2018-11-07 06:22] LABS: BASOPHILS % 0.9 % (0.0-2.0); EOSINOPHILS % 5.8 % (0.0-5.0); HEMATOCRIT. 32.9 % (42.0-52.0); HEMOGLOBIN. 10.9 g/dL (14.0-18.0); LYMPHOCYTES % 30.6 % (20.0-50.0); MEAN CORPUSCULAR HEMOGLOBIN 26.5 pg (28.0-32.0); MEAN PLATELET VOLUME 9.1 fl (7.4-10.4); MONOCYTES % 8.3 % (2.0-8.0); NEUTROPHILS % 54.4 % (40.0-76.0); PLATELET 292 x1000/uL (130-400); RED BLOOD CELL COUNT 4.11 mill/uL (4.7-6.1); RED CELL DISTRIBUTION WIDTH 14.1 % (11.6-14.6)
[2018-11-07 07:50] VITALS: BP 144/94
[2018-11-07] MEDS: INSULIN LISPRO 100 UNITS/ML SUBCUT SCH ×4 (09:00→21:56)
[2018-11-07] MEDS: LANTHANUM CARBONATE 500MG CHEW TABLET PO SCH ×4 (09:00→16:25)
[2018-11-07] MEDS: ENOXAPARIN 30MG/0.3ML SYR SUBCUT SCH (09:10)
[2018-11-07] MEDS: DOCUSATE SODIUM 250MG CAPSULE PO SCH (09:11)
[2018-11-07] MEDS: FLUTICASONE/VILANTEROL 200-25 BLST.W.DEV ORI SCH (09:11)
[2018-11-07] MEDS: FAMOTIDINE 20MG TABLET PO SCH (09:11)
[2018-11-07] MEDS: ASPIRIN 325MG EC TABLET PO SCH (09:11)
[2018-11-07] MEDS: FERROUS SULFATE 325MG TABLET PO SCH (09:11)
[2018-11-07] MEDS: NIFEDIPINE XL 60MG TAB PO SCH (09:12)
[2018-11-07] MEDS: FOLIC ACID/VITAMIN B COMP W-C TABLET PO SCH (09:36)
[2018-11-07 20:00] VITALS: BP 163/95
[2018-11-07] MEDS: ATORVASTATIN CALCIUM 20MG TABLET PO SCH (20:35)
[2018-11-07 20:40] VITALS: BP 151/88
[2018-11-07] MEDS: DOXAZOSIN MESYLATE 2MG TABLET PO SCH (20:40)
[2018-11-07 21:58] VITALS: BP 164/96
[2018-11-07] MEDS: INSULIN GLARGINE UD 100 UNITS/ML SYR SUBCUT SCH (22:09)
[2018-11-08 05:52] VITALS: BP 150/84
[2018-11-08] MEDS: HYDRALAZINE HCL 25MG TABLET PO SCH ×3 (05:52→22:00)
[2018-11-08] MEDS: CLONIDINE 0.3MG TABLET PO SCH ×3 (06:00→22:00)
[2018-11-08] MEDS: BLOOD SUGAR DIAGNOSTIC STRIP TEST SCH ×4 (06:32→21:19)
[2018-11-08] MEDS: INSULIN LISPRO 100 UNITS/ML SUBCUT SCH ×4 (07:00→21:31)
[2018-11-08 07:24] LABS: EOSINOPHILS % 6.5 % (0.0-5.0); HEMATOCRIT. 30.4 % (42.0-52.0); LYMPHOCYTES % 36.1 % (20.0-50.0); MEAN CORPUSCULAR HEMOGLOBIN 26.5 pg (28.0-32.0); MEAN CORPUSCULAR VOLUME 80.4 fL (80.0-94.0); MEAN PLATELET VOLUME 8.9 fl (7.4-10.4); MONOCYTES % 8.5 % (2.0-8.0); NEUTROPHILS % 47.9 % (40.0-76.0); PLATELET 312 x1000/uL (130-400); RED BLOOD CELL COUNT 3.78 mill/uL (4.7-6.1); RED CELL DISTRIBUTION WIDTH 14.4 % (11.6-14.6)
[2018-11-08 08:00] VITALS: BP 166/91
[2018-11-08] MEDS: NIFEDIPINE XL 60MG TAB PO SCH (09:00)
[2018-11-08] MEDS: FOLIC ACID/VITAMIN B COMP W-C TABLET PO SCH (12:37)
[2018-11-08] MEDS: FAMOTIDINE 20MG TABLET PO SCH (12:37)
[2018-11-08] MEDS: LANTHANUM CARBONATE 500MG CHEW TABLET PO SCH ×3 (12:38→17:39)
[2018-11-08] MEDS: ENOXAPARIN 30MG/0.3ML SYR SUBCUT SCH (12:38)
[2018-11-08] MEDS: ASPIRIN 325MG EC TABLET PO SCH (12:38)
[2018-11-08] MEDS: DOCUSATE SODIUM 250MG CAPSULE PO SCH (12:38)
[2018-11-08] MEDS: FLUTICASONE/VILANTEROL 200-25 BLST.W.DEV ORI SCH (12:40)
[2018-11-08] MEDS: FERROUS SULFATE 325MG TABLET PO SCH (12:40)
[2018-11-08 20:00] VITALS: BP 132/75
[2018-11-08] MEDS: ATORVASTATIN CALCIUM 20MG TABLET PO SCH (21:18)
[2018-11-08] MEDS: DOXAZOSIN MESYLATE 2MG TABLET PO SCH (21:19)
[2018-11-08] MEDS: INSULIN GLARGINE UD 100 UNITS/ML SYR SUBCUT SCH (22:23)
[2018-11-09] MEDS: CLONIDINE 0.3MG TABLET PO SCH ×3 (06:08→22:19)
[2018-11-09] MEDS: HYDRALAZINE HCL 25MG TABLET PO SCH ×3 (06:08→22:18)
[2018-11-09] MEDS: BLOOD SUGAR DIAGNOSTIC STRIP TEST SCH ×4 (06:21→20:33)
[2018-11-09] MEDS: INSULIN LISPRO 100 UNITS/ML SUBCUT SCH ×4 (06:25→20:39)
[2018-11-09 07:51] VITALS: BP 126/79
[2018-11-09] MEDS: FERROUS SULFATE 325MG TABLET PO SCH (08:48)
[2018-11-09] MEDS: FOLIC ACID/VITAMIN B COMP W-C TABLET PO SCH (08:48)
[2018-11-09] MEDS: LANTHANUM CARBONATE 500MG CHEW TABLET PO SCH ×3 (08:49→17:11)
[2018-11-09] MEDS: ASPIRIN 325MG EC TABLET PO SCH (08:49)
[2018-11-09] MEDS: DOCUSATE SODIUM 250MG CAPSULE PO SCH (08:49)
[2018-11-09] MEDS: FAMOTIDINE 20MG TABLET PO SCH (08:49)
[2018-11-09] MEDS: ENOXAPARIN 30MG/0.3ML SYR SUBCUT SCH (08:50)
[2018-11-09] MEDS: NIFEDIPINE XL 60MG TAB PO SCH (09:00)
[2018-11-09] MEDS: FLUTICASONE/VILANTEROL 200-25 BLST.W.DEV ORI SCH (11:10)
[2018-11-09] MEDS: BISACODYL 5MG TABLET PO PRN (18:13)
[2018-11-09 20:00] VITALS: BP 147/95
[2018-11-09] MEDS: ATORVASTATIN CALCIUM 20MG TABLET PO SCH (20:29)
[2018-11-09] MEDS: DOXAZOSIN MESYLATE 2MG TABLET PO SCH (20:31)
[2018-11-09] MEDS: HALOPERIDOL 0.5MG TABLET PO PRN (21:58)
[2018-11-09] MEDS: INSULIN GLARGINE UD 100 UNITS/ML SYR SUBCUT SCH (22:17)
[2018-11-10] MEDS: BLOOD SUGAR DIAGNOSTIC STRIP TEST SCH ×4 (06:15→21:21)
[2018-11-10] MEDS: INSULIN LISPRO 100 UNITS/ML SUBCUT SCH ×4 (06:18→21:32)
[2018-11-10] MEDS: CLONIDINE 0.3MG TABLET PO SCH ×2 (06:22→14:00)
[2018-11-10] MEDS: HYDRALAZINE HCL 25MG TABLET PO SCH ×3 (06:23→22:32)
[2018-11-10 07:24] LABS: BASOPHILS % 1.4 % (0.0-2.0); EOSINOPHILS % 5.7 % (0.0-5.0); HEMATOCRIT. 31.5 % (42.0-52.0); HEMOGLOBIN. 10.7 g/dL (14.0-18.0); LYMPHOCYTES % 40.4 % (20.0-50.0); MEAN CORPUSCULAR HEMOGLOBIN 26.8 pg (28.0-32.0); MEAN CORPUSCULAR VOLUME 79.2 fL (80.0-94.0); MEAN PLATELET VOLUME 8.8 fl (7.4-10.4); MONOCYTES % 9.9 % (2.0-8.0); NEUTROPHILS % 42.6 % (40.0-76.0); PLATELET 321 x1000/uL (130-400); RED BLOOD CELL COUNT 3.98 mill/uL (4.7-6.1); RED CELL DISTRIBUTION WIDTH 14.5 % (11.6-14.6)
[2018-11-10 08:37] VITALS: BP 119/67
[2018-11-10] MEDS: ASPIRIN 325MG EC TABLET PO SCH (09:14)
[2018-11-10] MEDS: FERROUS SULFATE 325MG TABLET PO SCH (09:14)
[2018-11-10] MEDS: FAMOTIDINE 20MG TABLET PO SCH (09:14)
[2018-11-10] MEDS: LANTHANUM CARBONATE 500MG CHEW TABLET PO SCH ×3 (09:14→17:03)
[2018-11-10] MEDS: FOLIC ACID/VITAMIN B COMP W-C TABLET PO SCH (09:14)
[2018-11-10] MEDS: DOCUSATE SODIUM 250MG CAPSULE PO SCH (09:14)
[2018-11-10] MEDS: FLUTICASONE/VILANTEROL 200-25 BLST.W.DEV ORI SCH (09:17)
[2018-11-10] MEDS: ENOXAPARIN 30MG/0.3ML SYR SUBCUT SCH (09:18)
[2018-11-10 11:55] VITALS: BP 168/101
[2018-11-10] MEDS: NIFEDIPINE XL 60MG TAB PO SCH (12:00)
[2018-11-10 14:40] VITALS: BP 121/68
[2018-11-10 16:05] VITALS: BP 125/84
[2018-11-10 20:00] VITALS: BP 126/80
[2018-11-10] MEDS: DOXAZOSIN MESYLATE 4MG TABLET PO SCH (21:20)
[2018-11-10] MEDS: ATORVASTATIN CALCIUM 20MG TABLET PO SCH (21:21)
[2018-11-10] MEDS: INSULIN GLARGINE UD 100 UNITS/ML SYR SUBCUT SCH (21:32)
[2018-11-10] MEDS: BISACODYL 5MG TABLET PO PRN (22:31)
[2018-11-11] MEDS: CLONIDINE 0.1MG TABLET PO SCH ×3 (00:26→13:16)
[2018-11-11] MEDS: HYDRALAZINE HCL 25MG TABLET PO SCH ×3 (06:19→22:00)
[2018-11-11] MEDS: BLOOD SUGAR DIAGNOSTIC STRIP TEST SCH ×4 (06:19→21:15)
[2018-11-11] MEDS: INSULIN LISPRO 100 UNITS/ML SUBCUT SCH ×4 (06:20→21:00)
[2018-11-11 08:00] VITALS: BP 135/84
[2018-11-11] MEDS: DOCUSATE SODIUM 250MG CAPSULE PO SCH (08:57)
[2018-11-11] MEDS: FAMOTIDINE 20MG TABLET PO SCH (08:57)
[2018-11-11] MEDS: FERROUS SULFATE 325MG TABLET PO SCH (08:57)
[2018-11-11] MEDS: FOLIC ACID/VITAMIN B COMP W-C TABLET PO SCH (08:57)
[2018-11-11] MEDS: ASPIRIN 325MG EC TABLET PO SCH (08:57)
[2018-11-11] MEDS: LANTHANUM CARBONATE 500MG CHEW TABLET PO SCH ×3 (08:58→16:23)
[2018-11-11] MEDS: ENOXAPARIN 30MG/0.3ML SYR SUBCUT SCH (08:59)
[2018-11-11] MEDS: FLUTICASONE/VILANTEROL 200-25 BLST.W.DEV ORI SCH (09:00)
[2018-11-11] MEDS ORDERED: NIFEDIPINE XL 90MG TAB PO SCH (09:00)
[2018-11-11 20:00] VITALS: BP 134/77
[2018-11-11] MEDS: NIFEDIPINE XL 60MG TAB PO SCH (21:00)
[2018-11-11] MEDS: INSULIN GLARGINE UD 100 UNITS/ML SYR SUBCUT SCH (22:00)
[2018-11-12] MEDS: ATORVASTATIN CALCIUM 20MG TABLET PO SCH ×2 (02:56→21:44)
[2018-11-12] MEDS: DOXAZOSIN MESYLATE 4MG TABLET PO SCH ×2 (02:56→21:44)
[2018-11-12] MEDS: HYDRALAZINE HCL 25MG TABLET PO SCH ×3 (06:04→22:58)
[2018-11-12] MEDS: BLOOD SUGAR DIAGNOSTIC STRIP TEST SCH ×4 (06:04→21:47)
[2018-11-12] MEDS: INSULIN LISPRO 100 UNITS/ML SUBCUT SCH ×4 (06:16→21:00)
[2018-11-12 08:00] VITALS: BP 151/65
[2018-11-12] MEDS: FLUTICASONE/VILANTEROL 200-25 BLST.W.DEV ORI SCH (09:00)
[2018-11-12] MEDS: FAMOTIDINE 20MG TABLET PO SCH (09:03)
[2018-11-12] MEDS: ASPIRIN 325MG EC TABLET PO SCH (09:03)
[2018-11-12] MEDS: FOLIC ACID/VITAMIN B COMP W-C TABLET PO SCH (09:04)
[2018-11-12] MEDS: LANTHANUM CARBONATE 500MG CHEW TABLET PO SCH ×3 (09:04→17:06)
[2018-11-12] MEDS: BISACODYL 5MG TABLET PO PRN (09:04)
[2018-11-12] MEDS: DOCUSATE SODIUM 250MG CAPSULE PO SCH (09:04)
[2018-11-12] MEDS: FERROUS SULFATE 325MG TABLET PO SCH (09:04)
[2018-11-12] MEDS: NIFEDIPINE XL 60MG TAB PO SCH ×2 (09:05→21:45)
[2018-11-12] MEDS: ENOXAPARIN 30MG/0.3ML SYR SUBCUT SCH (09:05)
[2018-11-12] MEDS: HALOPERIDOL 0.5MG TABLET PO PRN (09:57)
[2018-11-12] MEDS ORDERED: BISACODYL 10MG SUPP PR PRN (10:30)
[2018-11-12] MEDS ORDERED: NA PHOS,M-B/NA PHOS,DI-BA ENEMA 118ML PR PRN (12:15)
[2018-11-12 20:00] VITALS: BP 133/85
[2018-11-12] MEDS ORDERED: HALOPERIDOL 2MG TABLET PO PRN (22:15)
[2018-11-12] MEDS: INSULIN GLARGINE UD 100 UNITS/ML SYR SUBCUT SCH (23:01)
[2018-11-13] MEDS: HYDRALAZINE HCL 25MG TABLET PO SCH ×3 (06:37→22:00)
[2018-11-13] MEDS: BLOOD SUGAR DIAGNOSTIC STRIP TEST SCH ×4 (06:38→20:29)
[2018-11-13 08:00] VITALS: BP 144/98
[2018-11-13] MEDS: ASPIRIN 325MG EC TABLET PO SCH (08:51)
[2018-11-13] MEDS: FAMOTIDINE 20MG TABLET PO SCH (08:51)
[2018-11-13] MEDS: FERROUS SULFATE 325MG TABLET PO SCH (08:51)
[2018-11-13] MEDS: LANTHANUM CARBONATE 500MG CHEW TABLET PO SCH ×3 (08:51→17:34)
[2018-11-13] MEDS: NIFEDIPINE XL 60MG TAB PO SCH ×2 (08:51→21:00)
[2018-11-13] MEDS: FOLIC ACID/VITAMIN B COMP W-C TABLET PO SCH (08:52)
[2018-11-13] MEDS: DOCUSATE SODIUM 250MG CAPSULE PO SCH (08:52)
[2018-11-13] MEDS: INSULIN LISPRO 100 UNITS/ML SUBCUT SCH ×4 (08:52→21:13)
[2018-11-13] MEDS: FLUTICASONE/VILANTEROL 200-25 BLST.W.DEV ORI SCH (09:00)
[2018-11-13 20:00] VITALS: BP 125/85
[2018-11-13 20:07] LABS: BASOPHILS % 1.1 % (0.0-2.0); EOSINOPHILS % 4.1 % (0.0-5.0); HEMATOCRIT. 31.9 % (42.0-52.0); HEMOGLOBIN. 10.6 g/dL (14.0-18.0); LYMPHOCYTES % 29.8 % (20.0-50.0); MEAN CORPUSCULAR HEMOGLOBIN 26.8 pg (28.0-32.0); MEAN CORPUSCULAR VOLUME 80.4 fL (80.0-94.0); MONOCYTES % 9.3 % (2.0-8.0); NEUTROPHILS % 55.7 % (40.0-76.0); PLATELET 297 x1000/uL (130-400); RED BLOOD CELL COUNT 3.97 mill/uL (4.7-6.1); RED CELL DISTRIBUTION WIDTH 14.6 % (11.6-14.6)
[2018-11-13] MEDS: ATORVASTATIN CALCIUM 20MG TABLET PO SCH (20:29)
[2018-11-13] MEDS: DOXAZOSIN MESYLATE 4MG TABLET PO SCH (21:00)
[2018-11-13] MEDS: INSULIN GLARGINE UD 100 UNITS/ML SYR SUBCUT SCH (22:00)
[2018-11-14] MEDS: HYDRALAZINE HCL 25MG TABLET PO SCH ×2 (06:00→12:29)
[2018-11-14] MEDS: BLOOD SUGAR DIAGNOSTIC STRIP TEST SCH ×3 (06:32→17:39)
[2018-11-14] MEDS: INSULIN LISPRO 100 UNITS/ML SUBCUT SCH ×3 (06:32→17:39)
[2018-11-14 08:00] VITALS: BP_SYST 121; BP_SYST 159; BP_DIAS 108; BP_DIAS 67
[2018-11-14] MEDS: DOCUSATE SODIUM 250MG CAPSULE PO SCH (08:30)
[2018-11-14] MEDS: FLUTICASONE/VILANTEROL 200-25 BLST.W.DEV ORI SCH (08:30)
[2018-11-14] MEDS: FOLIC ACID/VITAMIN B COMP W-C TABLET PO SCH (08:30)
[2018-11-14] MEDS: FERROUS SULFATE 325MG TABLET PO SCH (08:30)
[2018-11-14] MEDS: LANTHANUM CARBONATE 500MG CHEW TABLET PO SCH ×3 (08:30→16:52)
[2018-11-14] MEDS: FAMOTIDINE 20MG TABLET PO SCH (08:30)
[2018-11-14] MEDS: ASPIRIN 325MG EC TABLET PO SCH (08:30)
[2018-11-14] MEDS: NIFEDIPINE XL 60MG TAB PO SCH (08:30)
[2018-11-14] MEDS ORDERED: ENOXAPARIN 30MG/0.3ML SYR SUBCUT SCH (09:00)
[2018-11-14] MEDS: CLONIDINE 0.1MG TABLET PO PRN ×3 (09:34→16:53)
[2018-11-14 14:34] VITALS: BP 145/95
[2018-11-14 17:49] LABS: EOSINOPHILS % 3.4 % (0.0-5.0); HEMATOCRIT. 32.1 % (42.0-52.0); HEMOGLOBIN. 10.6 g/dL (14.0-18.0); LYMPHOCYTES % 30.2 % (20.0-50.0); MEAN CORPUSCULAR HEMOGLOBIN 26.8 pg (28.0-32.0); MEAN CORPUSCULAR VOLUME 80.8 fL (80.0-94.0); MEAN PLATELET VOLUME 8.6 fl (7.4-10.4); MONOCYTES % 8.4 % (2.0-8.0); PLATELET 272 x1000/uL (130-400); RED BLOOD CELL COUNT 3.97 mill/uL (4.7-6.1); RED CELL DISTRIBUTION WIDTH 14.9 % (11.6-14.6)
[2018-11-14 17:52] LABS: PHOSPHORUS 4.5 mg/dL (2.5-4.9)
== END 2018-11-14 18:20 | DRG 56 ==
PROVIDERS: ADMIT Psychiatry & Neurology Neurology; ATTEND Internal Medicine Pulmonary Disease
PROC: 5A1D70Z Performance of Urinary Filtration, Intermittent, Less than 6 Hours Per Day (ICD-10-PCS; 2018-10-25)
PROC: 0JH63XZ Insertion of Tunneled Vascular Access Device into Chest Subcutaneous Tissue and Fascia, Percutaneous Approach (ICD-10-PCS; principal; 2018-10-27)
PROC: 02H633Z Insertion of Infusion Device into Right Atrium, Percutaneous Approach (ICD-10-PCS; 2018-10-27)
PROC: B2141ZZ Fluoroscopy of Right Heart using Low Osmolar Contrast (ICD-10-PCS; 2018-10-27)
PROC: 5A1D70Z Performance of Urinary Filtration, Intermittent, Less than 6 Hours Per Day (ICD-10-PCS; 2018-10-28)
PROC: 0JPT3XZ Removal of Tunneled Vascular Access Device from Trunk Subcutaneous Tissue and Fascia, Percutaneous Approach (ICD-10-PCS; 2018-10-29)
PROC: 5A1D70Z Performance of Urinary Filtration, Intermittent, Less than 6 Hours Per Day (ICD-10-PCS; 2018-10-30)
PROC: 5A1D70Z Performance of Urinary Filtration, Intermittent, Less than 6 Hours Per Day (ICD-10-PCS; 2018-11-04)
PROC: 5A1D70Z Performance of Urinary Filtration, Intermittent, Less than 6 Hours Per Day (ICD-10-PCS; 2018-11-06)
PROC: 5A1D70Z Performance of Urinary Filtration, Intermittent, Less than 6 Hours Per Day (ICD-10-PCS; 2018-11-08)
PROC: 5A1D70Z Performance of Urinary Filtration, Intermittent, Less than 6 Hours Per Day (ICD-10-PCS; 2018-11-11)
PROC: 5A1D70Z Performance of Urinary Filtration, Intermittent, Less than 6 Hours Per Day (ICD-10-PCS; 2018-11-13)
DX: I69.351 Hemiplegia and hemiparesis following cerebral infarction affecting right dominant side (principal); I63.9 Cerebral infarction, unspecified; K29.71 Gastritis, unspecified, with bleeding; N18.6 End stage renal disease; N17.9 Acute kidney failure, unspecified; I13.2 Hypertensive heart and chronic kidney disease with heart failure and with stage 5 chronic kidney disease, or end stage renal disease; F01.51 Vascular dementia, unspecified severity, with behavioral disturbance; I16.1 Hypertensive emergency; N04.9 Nephrotic syndrome with unspecified morphologic changes; N39.0 Urinary tract infection, site not specified; E11.22 Type 2 diabetes mellitus with diabetic chronic kidney disease; E11.40 Type 2 diabetes mellitus with diabetic neuropathy, unspecified; I50.9 Heart failure, unspecified; B19.20 Unspecified viral hepatitis C without hepatic coma; B96.89 Other specified bacterial agents as the cause of diseases classified elsewhere; D64.9 Anemia, unspecified; E78.5 Hyperlipidemia, unspecified; E87.6 Hypokalemia; F17.210 Nicotine dependence, cigarettes, uncomplicated; F41.8 Other specified anxiety disorders; G47.33 Obstructive sleep apnea (adult) (pediatric); G89.4 Chronic pain syndrome; I95.89 Other hypotension; I48.91 Unspecified atrial fibrillation; J44.9 Chronic obstructive pulmonary disease, unspecified; M12.88 Other specific arthropathies, not elsewhere classified, other specified site; M47.26 Other spondylosis with radiculopathy, lumbar region; M47.22 Other spondylosis with radiculopathy, cervical region; R09.02 Hypoxemia; F10.21 Alcohol dependence, in remission; R47.1 Dysarthria and anarthria; Z99.2 Dependence on renal dialysis; Z79.4 Long term (current) use of insulin; Z91.19 Patient's noncompliance with other medical treatment and regimen
CPT/HCPCS: 36415; 36589; 77001; 80048; 80076; 81003; 82565; 82595; 82962; 83735; 84100; 84300; 86706; 87077; 87186; 92523; 93970; 93971; 97110; 97112; 97116; 97163; 97166; 97530; 97535; 99152; 99153; J0885; J1630; J1642; J1644; J1650; J1815; J3010; J3490; G0500

== ENCOUNTER 2019-02-24 16:18 | Emergency (ER) | payer MEDICARE, OTHER ==
[~2019-02-24] VITALS: Ht 177.8 cm; Wt 100.4 kg
[2019-02-24 16:46] LABS: BASOPHILS % 1.1 % (0.0-2.0); EOSINOPHILS % 5.6 % (0.0-5.0); HEMATOCRIT. 35.8 % (42.0-52.0); LYMPHOCYTES % 40.6 % (20.0-50.0); MEAN CORPUSCULAR HEMOGLOBIN 27.7 pg (28.0-32.0); MEAN CORPUSCULAR VOLUME 82.6 fL (80.0-94.0); MONOCYTES % 7.7 % (2.0-8.0); PLATELET 196 x1000/uL (130-400); RED BLOOD CELL COUNT 4.34 mill/uL (4.7-6.1); RED CELL DISTRIBUTION WIDTH 16.5 % (11.6-14.6)
[2019-02-24 16:51] LABS: CHLORIDE 103 mEq/L (98-107)
[2019-02-24 16:55] LABS: ETHANOL BLOOD < 10 mg/dL; PARTIAL THROMBOPLASTIN TIME 31.6 sec (23.4-31.0); PROTHROMBIN TIME 9.8 sec (9.6-11.0)
[2019-02-24 16:58] LABS: LDL CHOLESTEROL 68 mg/dL (5-100)
[2019-02-24] MEDS ORDERED: LABETALOL 5MG/ML SYR 20 MG/4 ML SYRINGE IV ONE ×2 (18:00→19:15)
[2019-02-24] MEDS ORDERED: *NO ASPIRIN X 24 HOURS XX SCH (18:15)
[2019-02-24] MEDS ORDERED: ALTEPLASE 100MG/VIAL IV NR (18:15)
[2019-02-24] MEDS ORDERED: ALTEPLASE 81 MG in CONTAINER,EMPTY 1 BAG IV NR (18:16)
[2019-02-24 19:13] VITALS: BP 187/108
== END 2019-02-24 19:15 | disposition short-term general hospital (02) ==
LOC: ER 16:18
DX: I63.9 Cerebral infarction, unspecified (principal); I12.9 Hypertensive chronic kidney disease with stage 1 through stage 4 chronic kidney disease, or unspecified chronic kidney disease; E11.22 Type 2 diabetes mellitus with diabetic chronic kidney disease; N18.9 Chronic kidney disease, unspecified; N17.9 Acute kidney failure, unspecified; E78.00 Pure hypercholesterolemia, unspecified
CPT/HCPCS: 36415; 37195; 70450; 71045; 80053; 80320; 82962; 83721; 84484; 85025; 85610; 85730; 93005; 96374; 96376; 99291; J2997; J3490; J7060; G0480

== ENCOUNTER 2021-05-09 12:40 | Emergency (ER) | payer MEDICARE, MEDICAID ==
[~2021-05-09] VITALS: Ht 172.7 cm; Wt 80.0 kg
[2021-05-09 15:58] LABS: BASOPHILS % 0.9 % (0.0-2.0); EOSINOPHILS % 4.7 % (0.0-5.0); HEMATOCRIT. 34.1 % (42.0-52.0); HEMOGLOBIN. 11.2 g/dL (14.0-18.0); MEAN CORPUSCULAR HEMOGLOBIN 28.9 pg (28.0-32.0); MEAN PLATELET VOLUME 9.1 fl (7.4-10.4); MONOCYTES % 6.7 % (2.0-8.0); NEUTROPHILS % 50.7 % (40.0-76.0); PLATELET 134 x1000/uL (130-400); RED BLOOD CELL COUNT 3.88 mill/uL (4.7-6.1); RED CELL DISTRIBUTION WIDTH 13.7 % (11.6-14.6)
[2021-05-09 16:14] LABS: CHLORIDE 108 mEq/L (98-107)
[2021-05-09 18:49] VITALS: BP 146/75
[2021-05-09] MEDS ORDERED: ACETAMINOPHEN 325MG TABLET PO ONE (19:00)
== END 2021-05-09 23:02 | disposition home or self-care (01) ==
LOC: ER 12:53
DX: M25.552 Pain in left hip (principal); E11.22 Type 2 diabetes mellitus with diabetic chronic kidney disease; I12.0 Hypertensive chronic kidney disease with stage 5 chronic kidney disease or end stage renal disease; N18.6 End stage renal disease; E78.00 Pure hypercholesterolemia, unspecified; Z98.890 Other specified postprocedural states; Z86.73 Personal history of transient ischemic attack (TIA), and cerebral infarction without residual deficits
CPT/HCPCS: 36415; 73502; 80053; 85025; 99284